=== PATIENT | female | born 1995 | race Caucasian/White ===

== ENCOUNTER 2016-08-06 06:22 | Emergency (ER) | payer OTHER ==
[~2016-08-06] VITALS: Ht 172.7 cm; Wt 60.2 kg
[2016-08-06 06:24] VITALS: BP 108/74
[2016-08-06] MEDS ORDERED: CEFTRIAXONE 250 MG IM ONE (08:00)
[2016-08-06] MEDS ORDERED: AZITHROMYCIN 500 MG TABLET PO ONE (08:00)
[2016-08-06] MEDS ORDERED: CEFTRIAXONE 250 MG ONE (09:28)
[2016-08-06] MEDS ORDERED: AZITHROMYCIN 250 MG TABLET ONE (09:29)
[2016-08-06] MEDS ORDERED: LIDOCAINE 1%, 20ML ONE (09:29)
== END 2016-08-06 09:51 | disposition home or self-care (01) ==
LOC: ED 07:12
DX: N76.0 Acute vaginitis (principal); N30.00 Acute cystitis without hematuria
CPT/HCPCS: 81001; 87086; 87210; 87491; 87591; 87808; 96372; 99284; J0696

== ENCOUNTER 2016-09-02 06:21 | Emergency (ER) | payer OTHER ==
[~2016-09-02] VITALS: Ht 172.7 cm; Wt 60.0 kg
[2016-09-02] MEDS ORDERED: FLUCONAZOLE 100 MG TABLET PO ONE (08:30)
[2016-09-02] MEDS ORDERED: LACTOBACILLUS 1GM/ PACKET PO ONE (08:30)
[2016-09-02 08:52] LABS: BLOOD UREA NITROGEN 12 mg/dL (7-18)
[2016-09-02 10:04] VITALS: BP 96/62
== END 2016-09-02 10:06 | disposition home or self-care (01) ==
LOC: ED 10:00
DX: B37.3 Candidiasis of vulva and vagina (principal)
CPT/HCPCS: 36415; 80048; 81001; 82040; 87086; 99284